=== PATIENT | male | born 1950 | race Caucasian/White ===

== ENCOUNTER → 2017-01-29 | Outpatient (CLI) | payer MEDICARE, OTHER, BC ==
[~2017-01-29] MED LIST: ASPI-586 PO; FLC1T PO; HYDR-4131 PO; HYDR200T PO; LVT.05T PO; METH2.5T PO
[2017-01-29 14:15] LABS: BASOPHILS % (AUTO) 0 % (0-2); EOSINOPHILS # (AUTO) 0.1 10^3uL; EOSINOPHILS % (AUTO) 1 % (0-4); LYMPHOCYTES # (AUTO) 2.3 X10^3; MEAN CORPUSCULAR HEMOGLOBIN 34.7 PG (26.0-34.0); MEAN CORPUSCULAR HGB CONC 36.6 g/dL (31.0-37.0); MEAN CORPUSCULAR VOLUME 95 FL (80-100); MEAN PLATELET VOLUME 9.5 FL (6.0-9.5); MONOCYTES # (AUTO) 1.7 X10^3; MONOCYTES % (AUTO) 12 % (3-11); NEUTROPHILS # (AUTO) 9.9 X10^3; NEUTROPHILS % (AUTO) 70 % (51-67); PLATELET COUNT 392 10^3uL (150-450); WHITE BLOOD COUNT 14.01 10^3uL (4.0-11.0)
[2017-01-29 14:27] LABS: ALBUMIN 4.8 g/dL (3.4-5.0); ALKALINE PHOSPHATASE 59 U/L (38-126); ANION GAP 15.7 MEQ/L (3-15); BUN/CREATININE RATIO 14 (10-20); CALCULATED IONIZED CALCIUM 3.8 mg/dL (3.8-4.6); TOTAL PROTEIN 8.4 g/dL (6.4-8.5)
== END ==
LOC: LAB 13:55
PROVIDERS: ATTEND Family Medicine
DX: I10 Essential (primary) hypertension (principal); R79.89 Other specified abnormal findings of blood chemistry; R94.5 Abnormal results of liver function studies; E78.4 Other hyperlipidemia
CPT/HCPCS: 36415; 80053; 82977; 85025; 86140